=== PATIENT | male | born 1990 | race Two or more races ===

== ENCOUNTER 2019-05-03 22:31 | Emergency (ER) | payer OTHER ==
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
[2019-05-04 04:42] VITALS: BP 117/65
== END 2019-05-04 04:46 | disposition home or self-care (01) ==
LOC: ER 22:31
DX: T14.8XXA Other injury of unspecified body region, initial encounter (principal); R51 Headache; M54.2 Cervicalgia; M54.9 Dorsalgia, unspecified; J34.89 Other specified disorders of nose and nasal sinuses; M25.561 Pain in right knee; M25.562 Pain in left knee; R07.9 Chest pain, unspecified; V49.40XA Driver injured in collision with unspecified motor vehicles in traffic accident, initial encounter; I44.0 Atrioventricular block, first degree
CPT/HCPCS: 70150; 70450; 71046; 72050; 72070; 72110; 99284